=== PATIENT | female | born 1970 | race Caucasian/White ===

== ENCOUNTER 2017-08-15 09:37 | Emergency (ER) | payer MEDICAID ==
[~2017-08-15] VITALS: Ht 165.1 cm; Wt 83.9 kg
[2017-08-15 09:40] VITALS: BP 162/9
== END 2017-08-15 10:39 | disposition home or self-care (01) ==
LOC: ER 09:38
DX: J06.9 Acute upper respiratory infection, unspecified (principal)
CPT/HCPCS: 71045-TC; A4606; Z7610

== ENCOUNTER 2017-08-15 18:41 | Emergency (ER) | payer MEDICAID ==
[~2017-08-15] VITALS: Ht 165.1 cm; Wt 99.8 kg
[2017-08-15 18:44] VITALS: BP 156/106
== END 2017-08-15 19:18 | disposition home or self-care (01) ==
LOC: ER 18:42
DX: J40 Bronchitis, not specified as acute or chronic (principal)
CPT/HCPCS: 99283; A4606; Z7610